=== PATIENT | female | born 1985 | race African-American/Black ===

== ENCOUNTER 2017-02-22 21:38 | Emergency (ER) | payer SELFPAY ==
[2017-02-22] MEDS ORDERED: Ibuprofen 800 MG TAB ONE (21:48)
[2017-02-22] MEDS ORDERED: Ondansetron ODT 4 MG TAB ONE (21:48)
[2017-02-22] MEDS ORDERED: methylPREDNISolone Sod Succ/PF 125 MG/2 ML VIAL ONE (22:04)
[2017-02-22] MEDS ORDERED: Metoclopramide HCl 10 MG/2 ML VIAL ONE (22:04)
[2017-02-22] MEDS ORDERED: diphenhydrAMINE 50 MG/ML VIAL ONE (22:04)
[2017-02-22] MEDS ORDERED: Ketorolac Tromethamine 30 MG/ML VIAL ONE (22:04)
--- NOTE | 2017-02-22 22:21 | CT ---
CT BRAIN WITHOUT CONTRAST: Date: 02/22/17 HISTORY: Headache. COMPARISON: None. FINDINGS: No acute territorial infarct or hemorrhage. No midline shift or mass effect. Ventricular size and ext ra-axial CSF spaces are normal. Paranasal sinuses and mastoids are clear. IMPRESSION: No acute intracranial abnormality. POS: [facility]
== END 2017-02-22 23:12 | disposition home or self-care (01) ==
LOC: ERS 21:38
DX: R51 Headache (principal); E03.9 Hypothyroidism, unspecified; F17.210 Nicotine dependence, cigarettes, uncomplicated
CPT/HCPCS: 70450; 96365; 96375; J1200; J1885; J2765; J2930; Q0162